=== PATIENT | male | born 1930 | race Caucasian/White ===

== ENCOUNTER → 2016-06-30 | Outpatient (CLI) | payer MEDICARE, BC, OTHER ==
[2016-06-30 13:10] LABS: ANION GAP 11 (5-19); BLOOD UREA NITROGEN 17 mg/dL (7-20); CARBON DIOXIDE 28 mmol/L (22-30); CHLORIDE 99 mmol/L (98-107); CREATININE RESULT 0.91 mg/dL (0.52-1.25); GLUCOSE 105 mg/dL (75-110); POTASSIUM 5.2 mmol/L (3.6-5.0); SODIUM 137.9 mmol/L (137-145)
== END ==
LOC: OD 12:11
PROVIDERS: ATTEND Physician Assistant
DX: E87.5 Hyperkalemia (principal)
CPT/HCPCS: 36415; 80048

== ENCOUNTER → 2016-07-07 | Outpatient (CLI) | payer MEDICARE, BC, OTHER | LOC: OD 09:20 | PROVIDERS: ATTEND Family Medicine | DX: Z11.1 Encounter for screening for respiratory tuberculosis (principal) | CPT/HCPCS: 71020 ==